=== PATIENT | female | born 1945 | race Asian ===

== ENCOUNTER → 2016-10-28 | Outpatient (CLI) | payer MEDICARE, OTHER ==
[~2016-10-28] VITALS: Ht 167.6 cm; Wt 50.8 kg
[~2016-10-28] MED LIST: LISI-646 PO; LOVA20TA4 PO; METF-312 PO
[2016-10-28 12:51] LABS: Basophils # (auto) 0.1 uL; Basophils % (auto) 0.7 % (0.0-2.0); DEFINITIVE VIEW TRANSMISSION; Eosinophils # (auto) 0.2 uL; Eosinophils % (auto) 2.5 % (0.0-7.0); Hematocrit 34.1 % (36.0-46.0); Hemoglobin 10.2 g/dL (12.2-16.2); Lymphocytes # (auto) 1.7 uL; Lymphocytes % (auto) 23.4 % (10.0-50.0); Mean Corpuscular Hemoglobin 22.6 pg (28.0-32.0); Mean Corpuscular Volume 75.3 fL (80.0-100.0); Mean Platelet Volume 8.9 fL (7.4-10.4); Monocytes # (auto) 0.6 uL; Monocytes % (auto) 9.1 % (0.0-12.0); Neutrophils # (auto) 4.5 uL; Neutrophils % (auto) 64.3 % (37.0-80.0); Platelet Count (auto) 309 10^3/uL (140-450); Red Cell Distribution Width 14.3 % (11.6-16.0); White Blood Cell 7.1 10^3/uL (4.4-10.8)
[2016-10-28 13:26] LABS: Albumin 3.8 g/dL (3.4-5.0); Bilirubin, Total 0.4 mg/dL (0.2-1.0); Calcium 9.2 mg/dL (8.5-10.1); Potassium 4.1 mmol/L (3.5-5.1)
[2016-10-28 15:25] LABS: INR 0.99 (0.9-1.15); Partial Thromboplastin Time 26.7 sec (22.64-33.71); Prothrombin Time 10.2 sec (9.37-12.3)
== END | disposition home or self-care (01) ==
LOC: LAB 08:00 → EDSTATUS 11-21 13:52
PROVIDERS: ATTEND Specialist
DX: N85.00 Endometrial hyperplasia, unspecified (principal); N28.1 Cyst of kidney, acquired; R79.1 Abnormal coagulation profile
CPT/HCPCS: 36415; 80053; 85025; 85610; 85730; 86850; 86900; 86901

== ENCOUNTER 2017-01-30 08:40 | Day surgery (SDC) | payer MEDICARE ==
[2017-01-27 12:28] LABS: Urine Bilirubin Negative (Negative); Urine Blood Negative /uL (Negative); Urine Color Yellow (Yellow); Urine Glucose Normal (Normal); Urine Ketone Negative (Negative); Urine Nitrite Negative (Negative); Urine Urobilinogen Normal (Negative); Urine pH 5.5 (5.0-8.0)
[2017-01-27 12:33] LABS: Basophils # (auto) 0 uL; Basophils % (auto) 0.8 % (0.0-2.0); DEFINITIVE VIEW TRANSMISSION; Eosinophils # (auto) 0.3 uL; Eosinophils % (auto) 5.7 % (0.0-7.0); Hematocrit 34.8 % (36.0-46.0); Hemoglobin 10.7 g/dL (12.2-16.2); Lymphocytes % (auto) 39.5 % (10.0-50.0); Mean Corpuscular Hemoglobin 23.1 pg (28.0-32.0); Mean Corpuscular Hgb Conc. 30.7 g/dL (32.0-36.0); Mean Corpuscular Volume 75.3 fL (80.0-100.0); Mean Platelet Volume 10.1 fL (7.4-10.4); Monocytes # (auto) 0.5 uL; Monocytes % (auto) 10.1 % (0.0-12.0); Neutrophils # (auto) 2.2 uL; Neutrophils % (auto) 43.9 % (37.0-80.0); Platelet Count (auto) 305 10^3/uL (140-450); Red Cell Distribution Width 14.8 % (11.6-16.0); White Blood Cell 5.1 10^3/uL (4.4-10.8)
[2017-01-27 12:49] LABS: INR 0.94 (0.9-1.15); Partial Thromboplastin Time 25.7 sec (22.64-33.71); Prothrombin Time 10.1 sec (9.37-12.3)
[2017-01-27 12:57] LABS: Albumin 3.9 g/dL (3.4-5.0); BUN/Creatinine Ratio 38.5; Bilirubin, Total 0.4 mg/dL (0.2-1.0); Calcium 9.7 mg/dL (8.5-10.1); Potassium 4.2 mmol/L (3.5-5.1); Total Protein 7.3 g/dL (6.4-8.2)
[~2017-01-30] VITALS: Ht 167.6 cm; Wt 50.8 kg
[~2017-01-30 08:40] MED LIST changes: -METF-312 PO; +METF-370 PO
[2017-01-30] MEDS ORDERED: ceFAZolin 1GM/50ML D5W 50 ML IV ONE (08:45)
[2017-01-30] MEDS ORDERED: DEXAMETHASONE SOD PHOS 10MG/1ML VIAL INJ IV ONE (10:25)
[2017-01-30] MEDS ORDERED: PROPOFOL 10 MG/ML 20 ML IV ONE ×2 (10:25→11:46)
[2017-01-30] MEDS ORDERED: fentaNYL CITRATE 100 MCG/2 ML VL ONE ×2 (10:25→11:36)
[2017-01-30] MEDS ORDERED: SODIUM CHLORIDE LOCK 10 ML ONE (10:25)
[2017-01-30] MEDS ORDERED: MIDAZOLAM HCL 1MG/1ML-2 ML VIAL ONE ×2 (10:25→11:37)
[2017-01-30] MEDS ORDERED: ONDANSETRON HCL 4 MG/2 ML VIAL ONE (10:25)
[2017-01-30] MEDS ORDERED: LIDOCAINE HCL 2 %PF INJ 10ML AMP IJ ONE (10:25)
[2017-01-30] MEDS ORDERED: LABETALOL HCL 5 MG/ML 4ML SYRINGE IV PRN (11:45)
[2017-01-30] MEDS ORDERED: KETOROLAC TROMETH 30 MG/ML 1ML VIAL IV ONE (11:45)
[2017-01-30] MEDS ORDERED: ePHEDrine SULFATE 50 MG/ML AMP IV PRN (11:45)
[2017-01-30] MEDS ORDERED: MIDAZOLAM HCL 1MG/1ML-2 ML VIAL IV PRN (11:45)
[2017-01-30] MEDS ORDERED: ONDANSETRON HCL 4 MG/2 ML VIAL IV ONE (11:45)
[2017-01-30] MEDS ORDERED: ACCU-CHEK COMFORT CURVE STRIP VI ONE (11:45)
[2017-01-30] MEDS ORDERED: MORPHINE SULF INJ 2 MG/ML SYRINGE 1ML IV PRN (11:45)
[2017-01-30] MEDS ORDERED: hydrALAZINE HCL 20 MG/ML VL IV PRN (11:45)
[2017-01-30] MEDS ORDERED: HYDROmorphone HCL 2 MG/ML VL IV PRN (11:45)
[2017-01-30] MEDS ORDERED: LACTATED RINGER'S 1,000 ML IV SCH (12:38)
[2017-01-30] MEDS ORDERED: ONDANSETRON HCL 4 MG/2 ML VIAL IV PRN (12:45)
[2017-01-30 13:46] VITALS: BP 123/70
== END 2017-01-30 13:46 | disposition home or self-care (01) ==
LOC: SUR 08:40
PROVIDERS: ATTEND Specialist
DX: N85.00 Endometrial hyperplasia, unspecified (principal); E78.00 Pure hypercholesterolemia, unspecified; E11.9 Type 2 diabetes mellitus without complications
CPT/HCPCS: 36415; 58558; 80053; 81003; 85025; 85610; 85730; 86850; 86900; 86901; 88305; J0690; J1100; J2250; J2405; J2704; J3010

== ENCOUNTER 2019-11-22 11:28 | Day surgery (SDC) | payer MEDICARE ==
[~2019-11-22] VITALS: Ht 167.6 cm; Wt 54.0 kg
[~2019-11-22 11:28] MED LIST changes: -LISI-646 PO; +LISI2.5T47 PO; +METO25TA36 PO
[2019-11-22] MEDS ORDERED: MIDAZOLAM HCL 1MG/1ML-2 ML VIAL IV ONE (12:00)
[2019-11-22] MEDS ORDERED: LIDOCAINE VISCOUS 2% 15ML UD PO ONE (12:00)
[2019-11-22] MEDS ORDERED: fentaNYL CITRATE 100 MCG/2 ML VL IV ONE (12:00)
== END 2019-11-22 14:20 | disposition home or self-care (01) ==
LOC: CATH 11:28
PROVIDERS: ATTEND Internal Medicine
DX: R00.0 Tachycardia, unspecified (principal); Z88.1 Allergy status to other antibiotic agents; Z88.8 Allergy status to other drugs, medicaments and biological substances
CPT/HCPCS: 93312; J2250; J3010; 99152

== ENCOUNTER 2020-02-21 07:20 | Day surgery (SDC) | payer MEDICARE ==
[~2020-02-21] VITALS: Ht 167.6 cm; Wt 53.5 kg
[2020-02-21] MEDS ORDERED: LIDOCAINE 2%HCL (LOCAL ANESTH.) INJ 20ML MDV ONE (07:38)
[2020-02-21] MEDS ORDERED: IODIXANOL 320MG/ML 100ML BTL IV ONE (07:38)
[2020-02-21] MEDS ORDERED: VERAPAMIL 2.5MG/ML INJ 2ML VIAL IV ONE (07:49)
[2020-02-21] MEDS ORDERED: HEPARIN SODIUM (PORCINE) 5000 UNITS/ML 1ML VIAL ONE (07:49)
[2020-02-21] MEDS ORDERED: ANGIOMAX 250 MG VIAL IV ONE (07:49)
[2020-02-21] MEDS ORDERED: fentaNYL CITRATE 100 MCG/2 ML VL ONE (07:50)
[2020-02-21] MEDS ORDERED: SODIUM CHL 0.9% 0 ML ONE (07:50)
[2020-02-21] MEDS ORDERED: MIDAZOLAM HCL 1MG/1ML-2 ML VIAL ONE (07:50)
[2020-02-21] MEDS ORDERED: ONDANSETRON HCL 4 MG/2 ML VIAL IV PRN (09:45)
[2020-02-21] MEDS ORDERED: HYDROcodone-ACET 5/325MG TAB PO PRN (09:45)
[2020-02-21] MEDS ORDERED: ACETAMINOPHEN 500 MG TAB PO PRN (09:45)
== END 2020-02-21 11:35 | disposition home or self-care (01) ==
LOC: CATH 07:20
PROVIDERS: ATTEND Internal Medicine
DX: R06.02 Shortness of breath (principal); I25.10 Atherosclerotic heart disease of native coronary artery without angina pectoris; E11.9 Type 2 diabetes mellitus without complications; I10 Essential (primary) hypertension; E78.5 Hyperlipidemia, unspecified; I05.0 Rheumatic mitral stenosis; R07.89 Other chest pain; Z79.899 Other long term (current) drug therapy; Z11.59 Encounter for screening for other viral diseases
CPT/HCPCS: 93460; C1769; C1894; J1644; J2250; J3010; J7030; Q9967; U0003; 99152; 99153

== ENCOUNTER 2021-05-27 06:56 | Day surgery (SDC) | payer MEDICARE ==
[~2021-05-27] VITALS: Ht 167.6 cm; Wt 56.2 kg
[~2021-05-27 06:56] MED LIST changes: +CHOL20007 PO; -LISI2.5T47 PO
[2021-05-27] MEDS ORDERED: IODIXANOL 320MG/ML 100ML BTL IV ONE (08:00)
[2021-05-27] MEDS ORDERED: LIDOCAINE 2%HCL (LOCAL ANESTH.) INJ 20ML MDV ONE (08:00)
[2021-05-27] MEDS ORDERED: ANGIOMAX 250 MG VIAL IV ONE (08:01)
[2021-05-27] MEDS ORDERED: fentaNYL CITRATE 100 MCG/2 ML VL ONE (08:01)
[2021-05-27] MEDS ORDERED: MIDAZOLAM HCL 2MG/2ML 2ml VIAL (1mg/ml) ONE (08:02)
[2021-05-27] MEDS ORDERED: SODIUM CHL 0.9% 0 ML ONE (08:02)
[2021-05-27] MEDS ORDERED: VERAPAMIL 2.5MG/ML INJ 2ML VIAL IV ONE (08:13)
[2021-05-27] MEDS ORDERED: HEPARIN SODIUM (PORCINE) 5000 UNITS/ML 1ML VIAL ONE (08:24)
== END 2021-05-27 11:30 | disposition home or self-care (01) ==
LOC: CATH 06:56
PROVIDERS: ATTEND Internal Medicine
DX: I25.10 Atherosclerotic heart disease of native coronary artery without angina pectoris (principal); I10 Essential (primary) hypertension; E78.5 Hyperlipidemia, unspecified; E11.9 Type 2 diabetes mellitus without complications; Z20.822 Contact with and (suspected) exposure to COVID-19; Z98.890 Other specified postprocedural states; Z79.899 Other long term (current) drug therapy; Z88.1 Allergy status to other antibiotic agents; Z88.8 Allergy status to other drugs, medicaments and biological substances; Z88.2 Allergy status to sulfonamides
CPT/HCPCS: 93460; C1751; C1769; C1887; C1894; J1644; J2250; J3010; J7030; Q9967; U0003; 93005; 99152

== ENCOUNTER 2022-06-08 22:00 | Inpatient (IN) | payer MEDICARE ==
[~2022-06-08] VITALS: Ht 167.6 cm; Wt 51.6 kg
[2022-06-08 23:11] LABS: Basophils # (auto) 0.1 10 ^3/uL (0-0.2); Basophils % (auto) 0.8 % (0.0-2.0); Eosinophils # (auto) 0 10 ^3/uL (0-0.8); Eosinophils % (auto) 0.1 % (0.0-7.0); Hematocrit 40.7 % (36.0-46.0); Hemoglobin 12.4 g/dL (12.2-16.2); Lymphocytes # (auto) 2.1 10 ^3/uL (0.4-5.4); Lymphocytes % (auto) 23.2 % (10.0-50.0); Mean Corpuscular Hemoglobin 22.5 pg (28.0-32.0); Mean Corpuscular Hgb Conc. 30.5 g/dL (32.0-36.0); Mean Corpuscular Volume 73.6 fL (80.0-100.0); Monocytes # (auto) 0.4 10 ^3/uL (0-1.3); Monocytes % (auto) 4.5 % (0.0-12.0); Neutrophils # (auto) 6.5 10 ^3/uL (1.6-8.6); Neutrophils % (auto) 71.4 % (37.0-80.0); Red Blood Cells 5.52 10^6/uL (4.0-5.20); Red Cell Distribution Width 14.7 % (11.8-14.3); White Blood Cell 9.1 10^3/uL (4.4-10.8)
[2022-06-08 23:25] LABS: Albumin 4.3 g/dL (3.4-5.0); Calcium 11.2 mg/dL (8.5-10.1); Potassium 3.5 mmol/L (3.5-5.1)
[2022-06-08 23:28] LABS: BUN/Creatinine Ratio 18.8; Bilirubin, Total 0.8 mg/dL (0.2-1.0); Total Protein 8.3 g/dL (6.4-8.2)
[2022-06-09] MEDS ORDERED: HYDROmorphone HCL 2 MG/ML VL/or syr IV ONE ×2 (02:30→06:45)
[2022-06-09] MEDS ORDERED: SODIUM CHLORIDE 0.9% 1,000 ML IV ONE (02:30)
[2022-06-09] MEDS ORDERED: ONDANSETRON HCL 4 MG/2 ML VIAL IV ONE (02:30)
[2022-06-09 03:15] LABS: Urine Amorphous Crystal MOD /hpf (None Seen); Urine Bacteria NONE SEEN /hpf (None Seen); Urine Blood Negative /uL (Negative); Urine Mucus FEW (None Seen); Urine Specific Gravity 1.016 (1.001-1.035); Urine WBC 2 /hpf (0 - 5)
[2022-06-09] MEDS ORDERED: PANTOPRAZOLE 40 MG/10 ML VIAL INJ IV ONE (06:45)
[2022-06-09] MEDS ORDERED: ONDANSETRON HCL 4 MG/2 ML VIAL IM ONE (06:45)
[2022-06-09] MEDS ORDERED: NITROGLYCERIN 0.4 MG SL TAB SL PRN (07:00)
[2022-06-09] MEDS ORDERED: DEXTROSE (50%) 50ML SYRG IV PRN (07:00)
[2022-06-09] MEDS ORDERED: ONDANSETRON HCL 4 MG/2 ML VIAL IV PRN (07:00)
[2022-06-09] MEDS ORDERED: MORPHINE SULFATE INJ 2 MG/ml SYRG IV PRN ×2 (07:00)
[2022-06-09] MEDS: DOCUSATE SOD 100 MG CAP PO SCH ×2 (09:32→23:45)
[2022-06-09] MEDS: METOPROLOL SUCCINATE XL 50 MG TAB PO SCH (09:36)
[2022-06-09] MEDS ORDERED: ASPirin 81 mg TAB PO SCH (10:00)
[2022-06-09] MEDS: ACCU-CHEK COMFORT CURVE STRIP VI SCH ×3 (12:11→23:46)
[2022-06-09] MEDS: InsuLIN REG 1unit/0.01ml Soln (100units/ml) SC SCH ×3 (12:16→23:45)
[2022-06-09] MEDS: ATORVASTATIN 20 MG TAB PO SCH (23:45)
[2022-06-10 05:26] LABS: Basophils # (auto) 0.1 10 ^3/uL (0-0.2); Eosinophils # (auto) 0 10 ^3/uL (0-0.8); Lymphocytes # (auto) 2.4 10 ^3/uL (0.4-5.4); Monocytes # (auto) 1.1 10 ^3/uL (0-1.3); White Blood Cell 11.5 10^3/uL (4.4-10.8)
[2022-06-10 05:29] LABS: Basophils % (auto) 0.5 % (0.0-2.0); Eosinophils % (auto) 0.4 % (0.0-7.0); Hematocrit 34.9 % (36.0-46.0); Hemoglobin 10.7 g/dL (12.2-16.2); Lymphocytes % (auto) 20.6 % (10.0-50.0); Mean Corpuscular Hemoglobin 22.8 pg (28.0-32.0); Mean Corpuscular Hgb Conc. 30.7 g/dL (32.0-36.0); Mean Corpuscular Volume 74.3 fL (80.0-100.0); Monocytes % (auto) 9.8 % (0.0-12.0); Neutrophils # (auto) 7.9 10 ^3/uL (1.6-8.6); Neutrophils % (auto) 68.7 % (37.0-80.0); Red Blood Cells 4.69 10^6/uL (4.0-5.20); Red Cell Distribution Width 14.3 % (11.8-14.3)
[2022-06-10 05:53] LABS: Potassium 3.5 mmol/L (3.5-5.1)
[2022-06-10] MEDS: InsuLIN REG 1unit/0.01ml Soln (100units/ml) SC SCH ×3 (06:00→17:44)
[2022-06-10] MEDS: ACCU-CHEK COMFORT CURVE STRIP VI SCH ×3 (06:05→17:44)
[2022-06-10 06:07] LABS: Albumin 3.3 g/dL (3.4-5.0); Bilirubin, Total 0.6 mg/dL (0.2-1.0); Calcium 8.6 mg/dL (8.5-10.1); Total Protein 6.6 g/dL (6.4-8.2)
[2022-06-10] MEDS ORDERED: LIDOCAINE VISCOUS 2% 15ML UD ONE (08:18)
[2022-06-10] MEDS ORDERED: diphenhdrAMINE HCL 50 MG/1 ML VL ONE (08:19)
[2022-06-10] MEDS ORDERED: MIDAZOLAM HCL 5 MG/ML-1ML VIAL ONE (08:19)
[2022-06-10] MEDS ORDERED: SODIUM CHLORIDE LOCK 10 ML ONE (08:19)
[2022-06-10] MEDS ORDERED: fentaNYL CITRATE 100 MCG/2 ML VL ONE (08:19)
[2022-06-10] MEDS ORDERED: EPINEPHrine HCL 1 MG/10 ML SYRG ONE (08:36)
[2022-06-10] MEDS ORDERED: FLUMAZENIL 0.1 MG/ML INJ 10ML MDV IV ONE (08:37)
[2022-06-10] MEDS ORDERED: NALOXONE HCL 0.4 MG/ML VIAL ONE (08:37)
[2022-06-10 09:00] VITALS: BP 115/59
[2022-06-10] MEDS: SUCRALFATE 1 GM/10 ML ORAL SUSP PO SCH ×3 (11:44→21:57)
[2022-06-10] MEDS: PANTOPRAZOLE 40 MG TAB PO SCH (11:45)
[2022-06-10] MEDS: METOPROLOL SUCCINATE XL 50 MG TAB PO SCH (11:50)
[2022-06-10] MEDS: DOCUSATE SOD 100 MG CAP PO SCH ×2 (11:51→21:58)
[2022-06-10] MEDS: HYDROcodone-ACET 5/325MG TAB PO PRN (11:52)
[2022-06-10 12:58] VITALS: BP 100/51
[2022-06-10 17:00] VITALS: BP 99/47
[2022-06-10] MEDS: PANTOPRAZOLE 40 MG/10 ML VIAL INJ IV SCH (21:57)
[2022-06-10] MEDS: ATORVASTATIN 20 MG TAB PO SCH (21:58)
[2022-06-10 22:00] VITALS: BP 100/51
[2022-06-11] MEDS: ACCU-CHEK COMFORT CURVE STRIP VI SCH ×3 (00:11→11:16)
[2022-06-11] MEDS: InsuLIN REG 1unit/0.01ml Soln (100units/ml) SC SCH ×3 (00:21→11:25)
[2022-06-11] MEDS: HYDROcodone-ACET 5/325MG TAB PO PRN (00:46)
[2022-06-11 05:00] VITALS: BP 109/50
[2022-06-11] MEDS: SUCRALFATE 1 GM/10 ML ORAL SUSP PO SCH ×2 (05:40→11:16)
[2022-06-11 06:57] LABS: Basophils # (auto) 0.1 10 ^3/uL (0-0.2); Basophils % (auto) 0.7 % (0.0-2.0); Eosinophils # (auto) 0.1 10 ^3/uL (0-0.8); Monocytes # (auto) 0.8 10 ^3/uL (0-1.3); Nucleated Red Blood Cells % 0.1 %
[2022-06-11 07:01] LABS: Eosinophils % (auto) 1.3 % (0.0-7.0); Hematocrit 30.3 % (36.0-46.0); Hemoglobin 9.5 g/dL (12.2-16.2); Lymphocytes % (auto) 25.7 % (10.0-50.0); Mean Corpuscular Hemoglobin 23.1 pg (28.0-32.0); Mean Corpuscular Hgb Conc. 31.3 g/dL (32.0-36.0); Mean Corpuscular Volume 73.9 fL (80.0-100.0); Monocytes % (auto) 10.1 % (0.0-12.0); Neutrophils # (auto) 4.8 10 ^3/uL (1.6-8.6); Neutrophils % (auto) 62.2 % (37.0-80.0); Red Blood Cells 4.11 10^6/uL (4.0-5.20); White Blood Cell 7.7 10^3/uL (4.4-10.8)
[2022-06-11 09:00] VITALS: BP 113/54
[2022-06-11] MEDS: DOCUSATE SOD 100 MG CAP PO SCH (09:50)
[2022-06-11] MEDS: PANTOPRAZOLE 40 MG TAB PO SCH (09:50)
[2022-06-11] MEDS: METOPROLOL SUCCINATE XL 50 MG TAB PO SCH (09:50)
[2022-06-11] MEDS: PANTOPRAZOLE 40 MG/10 ML VIAL INJ IV SCH (09:50)
[2022-06-11] MEDS ORDERED: SUCR1TAB22 OR (10:08)
[2022-06-11] MEDS ORDERED: PANT40T PO (10:08)
[2022-06-11 13:00] VITALS: BP 115/58
== END 2022-06-11 14:41 | disposition home or self-care (01) | DRG 74 ==
LOC: ER 22:02 → TELE 06-09 06:58 → TELE-EAST 06-09 22:20
PROVIDERS: ADMIT Nurse Practitioner; ATTEND Family Medicine
PROC: 0DB68ZX Excision of Stomach, Via Natural or Artificial Opening Endoscopic, Diagnostic (ICD-10-PCS; 2022-06-10)
PROC: 0DB58ZX Excision of Esophagus, Via Natural or Artificial Opening Endoscopic, Diagnostic (ICD-10-PCS; principal; 2022-06-10 10:42)
DX: E11.43 Type 2 diabetes mellitus with diabetic autonomic (poly)neuropathy (principal); K25.9 Gastric ulcer, unspecified as acute or chronic, without hemorrhage or perforation; K29.70 Gastritis, unspecified, without bleeding; K26.9 Duodenal ulcer, unspecified as acute or chronic, without hemorrhage or perforation; K31.84 Gastroparesis; K44.9 Diaphragmatic hernia without obstruction or gangrene; K21.9 Gastro-esophageal reflux disease without esophagitis; I10 Essential (primary) hypertension; Z20.822 Contact with and (suspected) exposure to COVID-19; Z87.11 Personal history of peptic ulcer disease; Z95.1 Presence of aortocoronary bypass graft; Z88.2 Allergy status to sulfonamides; Z88.8 Allergy status to other drugs, medicaments and biological substances; Z79.84 Long term (current) use of oral hypoglycemic drugs
CPT/HCPCS: 36415; 43239; 71045; 74176; 80053; 81001; 82962; 83690; 84484; 85025; 93005; 96361; 96372; 96374; 96375; 96376; C9113; G0378; J1815; J2250; J2405

== ENCOUNTER 2023-04-08 15:52 | Inpatient (IN) | payer MEDICARE ==
[~2023-04-08] VITALS: Ht 167.6 cm; Wt 55.5 kg
[~2023-04-08 15:52] MED LIST changes: +PANT40T PO; +SUCR1TAB22 OR
[2023-04-08 16:49] LABS: Basophils # (auto) 0.1 10 ^3/uL (0-0.2); Basophils % (auto) 1.1 % (0.0-2.0); Eosinophils # (auto) 0.2 10 ^3/uL (0-0.8); Monocytes # (auto) 0.5 10 ^3/uL (0-1.3); Neutrophils # (auto) 2.7 10 ^3/uL (1.6-8.6)
[2023-04-08 16:51] LABS: Eosinophils % (auto) 4.4 % (0.0-7.0); Hematocrit 34.3 % (36.0-46.0); Hemoglobin 10.9 g/dL (12.2-16.2); Lymphocytes # (auto) 1.5 10 ^3/uL (0.4-5.4); Mean Corpuscular Hemoglobin 23.3 pg (28.0-32.0); Mean Corpuscular Hgb Conc. 31.6 g/dL (32.0-36.0); Mean Corpuscular Volume 73.6 fL (80.0-100.0); Monocytes % (auto) 9.5 % (0.0-12.0); Nucleated Red Blood Cells % 0.2 %; Red Blood Cells 4.66 10^6/uL (4.0-5.20); Red Cell Distribution Width 15.5 % (11.8-14.3); White Blood Cell 4.9 10^3/uL (4.4-10.8)
[2023-04-08 17:10] LABS: Albumin 3.8 g/dL (3.4-5.0); Potassium 4.3 mmol/L (3.5-5.1)
[2023-04-08 17:13] LABS: BUN/Creatinine Ratio 20.8 (10.0-20.0); Bilirubin, Total 0.4 mg/dL (0.2-1.0); Total Protein 7.4 g/dL (6.4-8.2)
[2023-04-08 17:18] LABS: INR 0.98 (0.9-1.15); Partial Thromboplastin Time 25.6 SEC (24.5-34.5)
[2023-04-08] MEDS ORDERED: ENOXAPARIN SOD 60 MG/0.6 ML SYRINGE SC ONE (17:30)
[2023-04-08 18:03] LABS: Urine Bacteria NONE SEEN /hpf (None Seen); Urine Blood Negative /uL (Negative); Urine Mucus FEW (None Seen); Urine Specific Gravity 1.024 (1.001-1.035); Urine WBC 2 /hpf (0 - 5)
[2023-04-08] MEDS ORDERED: ROSU10TA64 PO (22:07)
[2023-04-08] MEDS ORDERED: METO-289 PO (22:07)
[2023-04-08] MEDS ORDERED: PANT40TA57 PO (22:07)
[2023-04-08] MEDS ORDERED: DEXTROSE (50%) 50ML SYRG IV PRN (22:15)
[2023-04-08 22:57] VITALS: BP 133/74
[2023-04-09] MEDS ORDERED: traMADol HCL 50 MG TAB PO ONE (00:30)
[2023-04-09 05:59] LABS: Basophils # (auto) 0.1 10 ^3/uL (0-0.2); Eosinophils # (auto) 0.3 10 ^3/uL (0-0.8); Lymphocytes # (auto) 2.3 10 ^3/uL (0.4-5.4); Mean Corpuscular Hemoglobin 23.1 pg (28.0-32.0); Monocytes # (auto) 0.6 10 ^3/uL (0-1.3)
[2023-04-09 06:01] LABS: Basophils % (auto) 1.1 % (0.0-2.0); Eosinophils % (auto) 5.6 % (0.0-7.0); Hematocrit 33.6 % (36.0-46.0); Hemoglobin 10.6 g/dL (12.2-16.2); Lymphocytes % (auto) 39.9 % (10.0-50.0); Mean Corpuscular Hgb Conc. 31.5 g/dL (32.0-36.0); Mean Corpuscular Volume 73.3 fL (80.0-100.0); Neutrophils # (auto) 2.5 10 ^3/uL (1.6-8.6); Neutrophils % (auto) 43.4 % (37.0-80.0); Nucleated Red Blood Cells % 0.2 %; Red Blood Cells 4.58 10^6/uL (4.0-5.20); Red Cell Distribution Width 15.6 % (11.8-14.3); White Blood Cell 5.7 10^3/uL (4.4-10.8)
[2023-04-09 06:15] LABS: Potassium 4.1 mmol/L (3.5-5.1)
[2023-04-09] MEDS: IPRATROPIUM BROM 0.5 MG/2.5ML INH SOL NEB SCH ×3 (06:20→19:52)
[2023-04-09] MEDS: ALBUTEROL SULF 2.5 MG/0.5ML(0.5%) NEB SOLN NEB SCH ×3 (06:20→19:52)
[2023-04-09 06:24] LABS: Albumin 3.6 g/dL (3.4-5.0); BUN/Creatinine Ratio 21.5 (10.0-20.0); Bilirubin, Total 0.2 mg/dL (0.2-1.0); Calcium 8.9 mg/dL (8.5-10.1); Total Protein 7.2 g/dL (6.4-8.2)
[2023-04-09] MEDS: InsuLIN REG 1unit/0.01ml Soln (100units/ml) SC SCH ×4 (07:00→21:17)
[2023-04-09] MEDS: ACCU-CHEK COMFORT CURVE STRIP VI SCH ×4 (07:15→22:27)
[2023-04-09] MEDS: PANTOPRAZOLE 40 MG TAB PO SCH (09:54)
[2023-04-09] MEDS: ASPirin-EC 81 mg tab PO SCH (09:54)
[2023-04-09] MEDS: METOPROLOL SUCCINATE XL 50 MG TAB PO SCH (09:55)
[2023-04-09] MEDS: ENOXAPARIN SOD 40 MG/0.4 ML SYRINGE SC SCH (09:55)
[2023-04-09] MEDS ORDERED: LORazepam 2MG/ML-1ML VIAL IV PRN (10:00)
[2023-04-09 10:54] VITALS: BP 108/62
[2023-04-09 17:28] VITALS: BP 109/57
[2023-04-09 19:26] LABS: Potassium 4.1 mmol/L (3.5-5.1)
[2023-04-09 20:00] VITALS: BP 102/53
[2023-04-09 22:00] VITALS: BP 102/53
[2023-04-09] MEDS ORDERED: ATORVASTATIN 20 MG TAB PO SCH (22:00)
[2023-04-09 23:07] LABS: Cholesterol 153 mg/dL (< 200); HDL Cholesterol 72 mg/dL (40-59); LDL Cholesterol 69 mg/dL (< 100); Triglycerides 111 mg/dL (< 150)
[2023-04-10] VITALS (7 sets, daily range): BP systolic 91–117; BP diastolic 55–62
[2023-04-10] MEDS: traMADol HCL 50 MG TAB PO PRN ×2 (02:26→23:12)
[2023-04-10] MEDS: ACCU-CHEK COMFORT CURVE STRIP VI SCH ×4 (06:02→21:07)
[2023-04-10] MEDS: InsuLIN REG 1unit/0.01ml Soln (100units/ml) SC SCH ×4 (06:02→21:10)
[2023-04-10] MEDS: ALBUTEROL SULF 2.5 MG/0.5ML(0.5%) NEB SOLN NEB SCH ×3 (06:08→19:28)
[2023-04-10] MEDS: IPRATROPIUM BROM 0.5 MG/2.5ML INH SOL NEB SCH ×3 (06:08→19:28)
[2023-04-10] MEDS: ASPirin-EC 81 mg tab PO SCH (10:27)
[2023-04-10] MEDS: ENOXAPARIN SOD 40 MG/0.4 ML SYRINGE SC SCH (10:27)
[2023-04-10] MEDS: PANTOPRAZOLE 40 MG TAB PO SCH (10:27)
[2023-04-10] MEDS: METOPROLOL SUCCINATE XL 50 MG TAB PO SCH (10:30)
[2023-04-10] MEDS ORDERED: EMPA1TAB PO (11:19)
[2023-04-10] MEDS ORDERED: HEPARIN DRIP/D5W 100UNITS/ML 250 ML IV SCH (17:00)
[2023-04-10] MEDS ORDERED: HEPARIN SODIUM (PORCINE) 5000 UNITS/ML 1ML VIAL IV ONE (17:15)
[2023-04-10] MEDS ORDERED: HEPARIN SODIUM (PORCINE) 5000 UNITS/ML 1ML VIAL ONE (17:41)
[2023-04-10] MEDS ORDERED: LACTULOSE 20Gm/30ML SOLN PO ONE (17:45)
[2023-04-10] MEDS: POLYETHYLENE GLYCOL 17 GM PWDR PO SCH (17:51)
[2023-04-10 18:07] LABS: Basophils # (auto) 0.1 10 ^3/uL (0-0.2); Basophils % (auto) 1.2 % (0.0-2.0); Eosinophils # (auto) 0.2 10 ^3/uL (0-0.8); Mean Corpuscular Volume 73.9 fL (80.0-100.0); Monocytes # (auto) 0.4 10 ^3/uL (0-1.3)
[2023-04-10 18:09] LABS: Eosinophils % (auto) 4.4 % (0.0-7.0); Hematocrit 37.9 % (36.0-46.0); Hemoglobin 11.8 g/dL (12.2-16.2); Lymphocytes # (auto) 1.8 10 ^3/uL (0.4-5.4); Lymphocytes % (auto) 35.7 % (10.0-50.0); Mean Corpuscular Hgb Conc. 31.1 g/dL (32.0-36.0); Monocytes % (auto) 8.8 % (0.0-12.0); Neutrophils # (auto) 2.5 10 ^3/uL (1.6-8.6); Neutrophils % (auto) 49.9 % (37.0-80.0); Nucleated Red Blood Cells % 0.1 %; Red Blood Cells 5.13 10^6/uL (4.0-5.20); Red Cell Distribution Width 15.2 % (11.8-14.3)
[2023-04-10 18:24] LABS: INR 0.97 (0.9-1.15); Partial Thromboplastin Time 30.1 SEC (24.5-34.5)
[2023-04-10] MEDS: ATORVASTATIN 20 MG TAB PO SCH ×2 (21:07→22:00)
[2023-04-11] VITALS (7 sets, daily range): BP systolic 94–112; BP diastolic 51–60
[2023-04-11 01:08] LABS: INR 1.04 (0.9-1.15)
[2023-04-11 01:21] LABS: Partial Thromboplastin Time > 139.0 SEC (24.5-34.5)
[2023-04-11] MEDS: ACCU-CHEK COMFORT CURVE STRIP VI SCH ×4 (06:05→22:43)
[2023-04-11] MEDS: InsuLIN REG 1unit/0.01ml Soln (100units/ml) SC SCH ×4 (06:07→23:23)
[2023-04-11] MEDS: ALBUTEROL SULF 2.5 MG/0.5ML(0.5%) NEB SOLN NEB SCH ×3 (06:34→19:35)
[2023-04-11] MEDS: IPRATROPIUM BROM 0.5 MG/2.5ML INH SOL NEB SCH ×3 (06:34→19:35)
[2023-04-11] MEDS ORDERED: HEPARIN DRIP/D5W 100UNITS/ML 250 ML IV SCH ×3 (07:20→16:30)
[2023-04-11 09:24] LABS: INR 1.04 (0.9-1.15)
[2023-04-11 09:30] LABS: Partial Thromboplastin Time > 139.0 SEC (24.5-34.5)
[2023-04-11] MEDS: PANTOPRAZOLE 40 MG TAB PO SCH (09:36)
[2023-04-11] MEDS: ASPirin-EC 81 mg tab PO SCH (09:37)
[2023-04-11] MEDS: METOPROLOL SUCCINATE XL 50 MG TAB PO SCH (09:37)
[2023-04-11] MEDS: POLYETHYLENE GLYCOL 17 GM PWDR PO SCH (09:37)
[2023-04-11 17:02] LABS: Partial Thromboplastin Time 49.8 SEC (24.5-34.5)
[2023-04-11] MEDS: ATORVASTATIN 20 MG TAB PO SCH (22:43)
[2023-04-11 22:54] LABS: INR 1.02 (0.9-1.15); Partial Thromboplastin Time 38.1 SEC (24.5-34.5)
[2023-04-11] MEDS: traMADol HCL 50 MG TAB PO PRN (22:56)
== END 2023-04-12 01:05 | disposition short-term general hospital (02) | DRG 64 ==
LOC: ER 15:52 → OVERFLOW 21:58 → TELE 22:23 → TELE-WESTW 04-09 13:14
PROVIDERS: ADMIT Family Medicine; ATTEND Family Medicine
PROC: 4A10X4Z Monitoring of Central Nervous Electrical Activity, External Approach (ICD-10-PCS; principal; 2023-04-09)
DX: I63.40 Cerebral infarction due to embolism of unspecified cerebral artery (principal); G93.41 Metabolic encephalopathy; I21.A1 Myocardial infarction type 2; I50.43 Acute on chronic combined systolic (congestive) and diastolic (congestive) heart failure; J96.00 Acute respiratory failure, unspecified whether with hypoxia or hypercapnia; I48.91 Unspecified atrial fibrillation; K21.9 Gastro-esophageal reflux disease without esophagitis; E11.9 Type 2 diabetes mellitus without complications; E78.00 Pure hypercholesterolemia, unspecified; I27.20 Pulmonary hypertension, unspecified; I34.2 Nonrheumatic mitral (valve) stenosis; Z20.822 Contact with and (suspected) exposure to COVID-19; I11.0 Hypertensive heart disease with heart failure; I36.1 Nonrheumatic tricuspid (valve) insufficiency; I51.3 Intracardiac thrombosis, not elsewhere classified; K27.9 Peptic ulcer, site unspecified, unspecified as acute or chronic, without hemorrhage or perforation; Z95.1 Presence of aortocoronary bypass graft; Z86.12 Personal history of poliomyelitis; Z88.2 Allergy status to sulfonamides; Z79.899 Other long term (current) drug therapy; Z95.2 Presence of prosthetic heart valve; Z86.73 Personal history of transient ischemic attack (TIA), and cerebral infarction without residual deficits; Z79.82 Long term (current) use of aspirin
CPT/HCPCS: 36415; 70450; 70551; 71045; 80053; 80061; 81001; 82962; 83735; 83880; 84100; 84132; 84484; 85025; 85610; 85730; 86803; 87040; 87426; 93005; 93306; 93886; 94640; 95819; 96372; G0378; J1815